=== PATIENT | female | born 1985 | race Native Hawaiian/Other Pacific Islander ===

== ENCOUNTER 2019-01-26 10:35 | Emergency (ER) | payer SELFPAY ==
[~2019-01-26] VITALS: Ht 172.7 cm; Wt 63.5 kg
--- NOTE | 2019-01-26 10:45 | NUR ---
DR Jansen at the bedside for MSE.
[2019-01-26] MEDS ORDERED: KETOROLAC TROMETHAMINE 30 MG INJ ONE (10:53)
[2019-01-26] MEDS ORDERED: KETOROLAC TROMETHAMINE 30 MG INJ IM ONE (11:00)
--- NOTE | 2019-01-26 11:13 | NUR ---
DR Jansen cancelled lab work. Pt is aware.
--- NOTE | 2019-01-26 11:18 | NUR ---
Pt states feeling better and her pain has decreased.
[2019-01-26 11:21] VITALS: BP 120/59
--- NOTE | 2019-01-26 11:23 | NUR ---
Patient discharged to home in stable conditon. Written and verbal after care instructions given. Patient verbalizes understanding of instructions. Pt left ER w/ steady gait, accompained by family.
== END 2019-01-26 11:24 | disposition home or self-care (01) ==
LOC: ER 10:35
DX: F41.9 Anxiety disorder, unspecified (principal); M54.6 Pain in thoracic spine; M54.5 Low back pain; R51 Headache; M25.511 Pain in right shoulder; M25.512 Pain in left shoulder; F17.290 Nicotine dependence, other tobacco product, uncomplicated; V49.49XA Driver injured in collision with other motor vehicles in traffic accident, initial encounter; Y93.89 Activity, other specified; Y92.89 Other specified places as the place of occurrence of the external cause; Y99.8 Other external cause status
CPT/HCPCS: 93005; 96372; 99283; 99406; J1885; A4663

== ENCOUNTER 2024-09-25 04:00 | Emergency (ER) | payer OTHER ==
[~2024-09-25] VITALS: Ht 170.2 cm; Wt 54.4 kg
[~2024-09-25 04:00] MED LIST: AMOX-430 PO; AZIT250T13 PO
[2024-09-25] MEDS ORDERED: levoFLOXacin 750 MG TABLET PO ONE (06:00)
[2024-09-25] MEDS ORDERED: AZITHROMYCIN IV 500 MG in IV DEXTROSE 5% 250 ML IV ONE (06:00)
[2024-09-25] MEDS ORDERED: CEFTRIAXONE /D5W 50ML IVPB **ER PYXIS IV ONE (06:05)
[2024-09-25] MEDS ORDERED: AZITHROMYCIN 500MG/ D5W 250ML IVPB **ER PYXIS ONLY IV ONE (06:06)
[2024-09-25] MEDS ORDERED: GUAIFENESIN/DEXTROMETHORPHAN 5 ML UDC PO ONE (06:15)
[2024-09-25] MEDS ORDERED: BENZONATATE 100 MG CAPSULE PO ONE (06:15)
[2024-09-25] MEDS ORDERED: D-ME473S47 PO (06:16)
[2024-09-25] MEDS ORDERED: AMOX-430 PO (06:16)
[2024-09-25] MEDS: CEFTRIAXONE 1 G in IV DEXTROSE 5% 50 ML IV ONE (06:45)
[2024-09-25 06:48] LABS: BASOPHILS % (AUTO) 0.3 % (0.0-2.0); EOSINOPHILS # (AUTO) 0.1 K/uL (0.0-0.7); EOSINOPHILS % (AUTO) 0.3 % (0.0-7.0); HEMATOCRIT 32.5 % (31.2-41.9); HEMOGLOBIN 11.4 g/dL (10.9-14.3); LYMPHOCYTES % (AUTO) 12.5 % (20.5-51.5); MEAN CORPUSCULAR HEMOGLOBIN 30.7 uug (24.7-32.8); MEAN CORPUSCULAR HGB CONC 35 g/dL (32.3-35.6); MEAN CORPUSCULAR VOLUME 87.4 fL (75.5-95.3); MONOCYTES # (AUTO) 1.4 K/uL (0.1-1.30); MONOCYTES % (AUTO) 8.7 % (0.0-11.0); NEUTROPHILS # (AUTO) 12.5 K/uL (1.8-8.9); NEUTROPHILS % (AUTO) 78.2 % (38.5-71.5); PLATELET COUNT (AUTO) 247 K/uL (179-408); RED BLOOD CELL COUNT(AUTO) 3.71 MIL/uL (3.63-4.92); RED CELL DISTRIBUTION WIDTH 13.2 % (12.3-17.7)
[2024-09-25 07:04] LABS: CREATININE 0.8 mg/dL (0.6-1.3)
[2024-09-25] MEDS ORDERED: POTASSIUM BICARBONATE/CIT AC 25 MEQ TABLET.EFF PO ONE (07:15)
[2024-09-25 07:17] LABS: ALBUMIN 2.6 g/dL (3.4-5.0); BILIRUBIN,TOTAL 0.6 mg/dL (0.2-1.0); POTASSIUM 3.3 mmol/L (3.5-5.1); TOTAL PROTEIN, SERUM 7.3 g/dL (6.4-8.2)
[2024-09-25 07:47] VITALS: BP 131/72; TEMP 97; O2SAT 96
== END 2024-09-25 08:02 | disposition home or self-care (01) ==
LOC: ER 04:11
DX: J18.9 Pneumonia, unspecified organism (principal); R65.10 Systemic inflammatory response syndrome (SIRS) of non-infectious origin without acute organ dysfunction; R06.00 Dyspnea, unspecified; R07.89 Other chest pain; R05.9 Cough, unspecified; R03.0 Elevated blood-pressure reading, without diagnosis of hypertension; J90 Pleural effusion, not elsewhere classified; I70.0 Atherosclerosis of aorta; F17.210 Nicotine dependence, cigarettes, uncomplicated; Z20.822 Contact with and (suspected) exposure to COVID-19; Z79.899 Other long term (current) drug therapy; Z59.00 Homelessness unspecified
CPT/HCPCS: 99284; 96365; 71046; 87426; 87804 ×2; 80053; 85025; 87040; 36415; J0456; J0696; A4606; A4663